=== PATIENT | male | born 1975 | race African-American/Black ===

== ENCOUNTER 2025-11-07 13:14 | Outpatient (AMB) | payer BC, SELFPAY ==
--- OUTSIDE RECORDS SUMMARY | 2025-11-07 13:16 | XMS_ITS | Clinical Summary ---
Author Organization [facility] Prior to 04/12/[address] [place] [address] Care Team Providers Care Pta Name Role Phone Unknown, Primary Care Provider Unavailabl e Allergies Active Allergy Reactions Criticality Noted Date Comments Oxycodone-Acetaminophen Nausea Only 06/06/2014 Medications Medication Sig Dispensed Refills Start Date End Date Status HYDROcodone-acetamino phen (NORCO) 5-325 MG per tablet Take 1 tablet by mouth every 6 (six) hours as needed for pain. 30 tablet 0 05/13/2015 Active Social History Tobacco Use Types Packs/Day Years Used Date Smoking Tobacco: Never Alcohol Use Standard Drinks/Week Comments No 0 (1 standard drink = 0.6 oz pur e alcohol) Sex and Gender Information Value Date Recorded Sex Assigned at Not on file Gender Identity Not on file Sexual Orientation Not on file Job Start Date Occupation Industry Not on file Not on file Not on file Last Filed Vital Signs Vital Sign Reading Time Taken Comments Blood Pressure 161/100 07/28/2017 3:56 AM EDT Pulse 60 07/28/2017 3:56 AM EDT Temperature 36.7 C (98.1 F) 07/28/2017 3:56 AM EDT Respiratory Rate 16 07/28/2017 3:56 AM EDT Oxygen Saturation 100% 07/28/2017 3:56 AM EDT Inhaled Oxygen Concentration - - Weight 78 kg (172 lb) 07/28/2017 3:56 AM EDT Height 167.6 cm (5' 6 ) 07/28/2017 3:56 AM EDT Body Mass Index 27.76 07/28/2017 3:56 AM EDT Plan of Treatment Health Maintenance Due Date Last Done Comments Hepatitis C Screening 1974 Depression Screening 1986 Preventative Health Evaluation 1992 Hepatitis B Vaccines (3 of 3 - 19+ 3-dose series) 09/15/2018 04/19/2018, 04/19/2018, 03/15/2018, Additional history exists Colon Cancer Screening (Colonoscopy) 2019 Shingrix-Zoster Vaccine (1 of 2) 2024 COVID-19 Vaccine (2 - season) 2025 11/10/2021 Influenza Vaccine (#1) 2025 08/29/2023, 2020 DTap / Tdap / Td (2 - Td or Tdap) 01/16/2028 01/15/2018 Pneumococcal Vaccine Aged Out No long er eligible based on patient's age to complete this topic RSV Ped < 20 months Aged Out No longe r eligible based on patient's age to complete this topic Medical Devices Implanted Type Area Cheese Packer Device Identifier Shelf Expiration Date Model / Serial / Lot Rayhack Lpl Bone Plate Implanted:Qty: 1 on 07/09/2014 by Cecil [place]ello [place] [facility] Right: Wrist [id number] / / Rayhack Locking Screw 2.7mm, 16mm Implanted:Qty: 1 on 07/09/2014 by Cecil Tello MD [place] [facility] Right: Wrist [id number] / / Rayhack Cortical Screw 3.5mm, 12mm Implanted:Qty: 1 on 07/09/2014 [place] [facility] [employer] [id number] / / Rayhack Cortical Screw 3.5mm, 14mm Implanted:Qty: 1 on 07/09/2014 by Cecil Tello MD [place] [facility] Right: Wrist [id number] / / Rayhack Cortical Screw ; 3.5mm, 16mm Implanted:Qty: 2 on 07/09/2014 by Cecil Tello MD [place] [facility] Right: Wrist [id number] / / Rayhack Locking Screw 2.7mm, 12mm Implanted:Qty: 1 on 07/09/2014 by Cecil Tello MD [place] [facility] Right: Wrist [id number] / / Explanted Type Area Cheese Packer Device Identifier Shelf Expiration Date Model / Serial / Lot Rayhack Cortical Screw 3.5mm, 18mm Explanted:Qty: 1 on 07/09/2014 by Cecil Tello [place] [facility] Right: Wrist [id number] / / Rayhack Cortical Screw 3.5mm, 20mm Explanted:Qty: 1 on 07/09/2014 by Cecil Tello MD at [facility] [id number] / / Rayhack Cortical Screw 3.5mm, 14mm Explanted:Qty: 1 on 07/09/2014 by Cecil Tello MD [place] [facility] Right: Wrist [id number] / / Rayhack Cortical Screw 2.7mm, 16mm Explanted:Qty: 1 on 07/09/2014 at [facility] Right: Wrist [id number] / / Screw Explanted:Qty: 7 on 05/13/2015 by Cecil Tello MD [place] [facility] Right: Wrist Plate Explanted:Qty: 1 on 05/13/2015 by Cecil Tello MD [place] [facility] Right: Wrist Care Teams Pta Relationship Specialty Start Date End Date Unknown, PCP - General 12/15/23
--- OUTSIDE RECORDS SUMMARY | 2025-11-07 13:16 | XMS_ITS | Clinical Summary ---
Author Organization [facility] Address [address] [place] [address] Care Team Providers Care Painter Railroad Car Name Role Phone Bryan Gonzalez MD Primary Care Provider [phone] Chad Gonzalez MD Unavailable [phone] Allergies Active Allergy Reactions Criticality Noted Date Comments Oxycodone-Acetaminophen Nausea Only 06/06/2014 vomiting Medications cyanocobalamin (VITAMIN B-12) 1000 MCG/ML injection Inject 1 mL (1,000 mcg total) into the shoulder, thigh, or buttocks every 21 days. 08/29/20 23 Active aspirin enteric coated (ECOTRIN LOW STRENGTH) 81 MG EC tabletIndications: Hyperlipidemia, unspecified hyperlipidemia type Take 1 tablet (81 mg total) by mouth daily. 90 tablet 3 12/25/19 24 Active hydrocortisone (ANUSOL-HC) 25 MG suppository UNWRAP AND INSERT 1 SUPPOSITORY RECTALLY ONCE A DAY NEEDED 01/24/20 25 Active rosuvastatin (CRESTOR) 20 MG tabletIndications: Hyperlipidemia, unspecified hyperlipidemia type TAKE 1 TABLET BY MOUTH EVERY DAY 90 tablet 3 02/11/20 25 Active Additional Information Patient taking differently:20 mg OralEvery morning, Reason: Other, Reported on 02/18/2025 Docusate Sodium (COLACE PO) Take by mouth every morning. Active Active Problems No known active problems Family History Medical History Relation Name Comments Colon cancer Brother Colon cancer Sister Relation Name Status Comments Brother Sister Social History Tobacco Use Types Packs/Day Years Used Date Smoking Tobacco: Never Smokeless Tobacco: Never Tobacco Cessation:Counseling Given: Not Answered Alcohol Use Standard Drinks/Week Comments Never 0 (1 standard drink = 0.6 oz pur e alcohol) AUDIT-C Answer Date Recorded Q1: How often do you have a drink containing alcohol? Never 02/18/2025 Q2: How many drinks containi ng alcohol do you have on a typical day when you are drinking? Patient does not drink Q3: How often do you have si x or more drinks on one occasion? Never 02/18/2025 Sex and Gender Information Value Date Recorded Sex Assigned at Male 12/25/2023 8:59 AM EST Legal Sex Male 11:54 AM EDT Gender Identity Male 12/25/2023 8:59 AM EST Sexual Orientation Heterosexual (straight) 12/25 8:59 AM EST Last Filed Vital Signs Vital Sign Reading Time Taken Comments Blood Pressure 142/90 03/03/2025 11:13 AM EDT Pulse 65 03/03/2025 11:13 AM EDT Temperature 36.1 C (97 F) 03/03/2025 10:33 AM EDT Respiratory Rate 20 03/03/2025 11:13 AM EDT Oxygen Saturation 96% 03/03/2025 11:13 AM EDT Inhaled Oxygen Concentration - - Weight 79.8 kg (176 lb) 02/18/2025 4:24 PM EDT Height 167.6 cm (5' 6 ) 02/18/2025 4:24 PM EDT Body Mass Index 28.41 02/18/2025 4:24 PM EDT Plan of Treatment Health Maintenance Due Date Last Done Comments Hepatitis C Virus Screening 1974 HIV Screening 1987 DTaP/Tdap/Td Vaccines (1 - Tdap) 1993 Hepatitis B Vaccines (1 of 3 - 19+ 3-dose series) 1993 Pneumococcal Vaccines 50+ (1 of 1 - PCV) 2024 Zoster (Shingles) Vaccine (1 of 2) 2024 Influenza Vaccine 06/13/2025 08/29/2023, 10/11/2021 COVID-19 Vaccine (4 - 2024- season) 2025 11/10/2021, 04/15/2021, 03/12/2021 Colonoscopy 03/03/2030 03/03/2025, 03/09/2021 RSV Vaccine 50 years and old er and Patients (1 - 1-dose 75+ series) 2049 Insurance [place] [place] - PPO Care Teams Painter Railroad Car Relationship Specialty Start Date End Date Bryan Gonzalez MD [address] [place] [address] PCP - General Internal Medicine 12/25/23 Chad Gonzalez MD 7 [facility] [address] [place] [address] Primary Tanker Truck Driver Cardiovascular Disease 12/28/23
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
--- OUTSIDE RECORDS SUMMARY | 2025-11-07 13:16 | XMS_ITS | Encounter Summary ---
Author Organization [facility] Prior to 09/13/2024 Address [address] [place] [address] Care Team Providers Care Systems Software Developer Name Role Phone Saurabh Romano MD Primary Care Provider Unavailable Makayla Loyd MD Primary Care Provider [phone] Reason for Visit * Reason Onset Date Comments Base Remover Feedback 09/01/2021 Physiatry Encounter Details Date Type Department Care Team Description 09/01/2021 Telephone Adult Medicine - [address] [address] Nasrin Shepard PA-C Base Remover Feedback (Physiatry) Social History Tobacco Use Types Packs/Day Years Used Date Smoking Tobacco: Never Smokeless Tobacco: Never Alcohol Use Standard Drinks/Week Comments Yes 0 (1 standard drink = 0.6 oz pur e alcohol) extremely rarely Sex Assigned at Date Recorded Male 08/18/2021 1:37 PM E DT Job Start Date Occupation Industry Not on file Not on file Not on file COVID-19 Exposure Response Date Recorded In the last month, have you been in contact with someone who was confirmed or suspected to have Coronavirus / COVID-19? No / Unsure 08/27/2021 1:14 PM EDT documented as of this encounter Miscellaneous Notes * Telephone Encounter - Otoniel Zepeda - 09/01/2021 2:53 PM EDT Patient is calling asking about his referral to Physiatry, please see message below. * Telephone Encounter - Otoniel Zepeda - 09/01/2021 9:26 AM EDT Mindy Alexandra, Can you please complete patients notes from 08/25. Estrellanilda Kira Referrals documented in this encounter Plan of Treatment Not on file documented as of this encounter Visit Diagnoses Not on filedocumented in this encounter Care Teams Systems Software Developer Relationship Specialty Start Date End Date Saurabh Romano MD PCP - General Internal Medicine 12/22/1701/12 Makayla Loyd MD [facility] [place] [address] PCP - General Internal Medicine 02/02/22 documented as of this encounter
--- OUTSIDE RECORDS SUMMARY | 2025-11-07 13:16 | XMS_ITS | Encounter Summary ---
Author Organization [facility] Prior to 09/13/2024 Address [address] [place] [address] Care Team Providers Care International Account Representative Name Role Phone Saurabh Romano MD Primary Care Provider Unavailable Makayla Loyd MD Primary Care Provider + [phone] Encounter Details Date Type Department Care Team Description 09/01/2021 Pt. Non Urgent Medic al Question Adult Medicine - [address] [address] Nasrin Shepard PA-C Social History Tobacco Use Types Packs/Day Years [...] encounter Miscellaneous Notes * Telephone Encounter - Deana Agustin M.A. - 09/01/2021 10:16 AM EDTFrom: Jostin Angela To: Yadi Shepard Sent: 09/01/2021 10:14 AM EDT Subject: Referral Question Good Morning, I was following up on the Referrals. I have not heard from either Referral and was wondering if I was suppose reach out to someone to set up appointments. Thank You documented in this encounter Plan of Treatment Not on file documented as of this encounter Visit Diagnoses Not on filedocumented in this encounter Care Teams International Account Representative Relationship Specialty Start Date End Date Saurabh Romano MD PCP - General Internal Medicine 12/22/1701/12 Makayla Loyd MD [address] [place] [address] PCP - General Internal Medicine 02/02/22 documented as of this encounter
--- OUTSIDE RECORDS SUMMARY | 2025-11-07 13:16 | XMS_ITS | Encounter Summary ---
Author Organization [facility] Prior to 09/13/2024 Address [address] [place] [address] Care Team Providers Care Combiner Operator Name Role Phone Saurabh Romano MD Primary Care Provider Unavailable Makayla Loyd MD Primary Care Provider + [phone] Encounter Details Date Type Department Care Team Description 06/15/2021 Orders Only Adult Medicine - [address] [address] Nasrin Shepard PA-C B12 deficiency Social History Tobacco Use Types Packs/Day Years [...] have Coronavirus / COVID-19? No / Unsure 06/15/2021 1:17 PM EDT documented as of this encounter Plan of Treatment Not on file documented as of this encounter Procedures Procedure Name Priority Date/Time Associated Diagnosis Comments VITAMIN B12 INJECTION Routine 06/15/2021 1:20 PM EDT B12 deficiency documented in this encounter Visit Diagnoses Diagnosis B12 deficiency Other B-complex deficiencies documented in this encounter Care Teams Combiner Operator Relationship Specialty Start Date End Date Saurabh Romano MD PCP - General Internal Medicine 12/22/1701/12 Makayla Loyd MD [address] [place] [address] PCP - General Internal Medicine 02/02/22 documented as of this encounter
--- OUTSIDE RECORDS SUMMARY | 2025-11-07 13:16 | XMS_ITS | Encounter Summary ---
Author Organization [facility] Prior to 09/13/2024 Address [address] [place] [address] Care Team Providers Care Biodiesel Engine Specialist Name Role Phone Saurabh Romano MD Primary Care Provider Unavailable Makayla Loyd MD Primary Care Provider [phone] Reason for Visit * Reason Onset Date Comments Testing 04/03/2018 Patient is sched uled for his PFT on April 30, 2018 @ 1:00 p.m. at [facility] Encounter Details Date Type Department Care Team Description 04/03/2018 Telephone Pulmonology - [place] [address] [facility] [address] [place] [address] Antoine Andrew MD [address] [facility] [address] [place] [address] Testing (Patient is scheduled for his PFT on April 30, 2018 @ 1:00 p.m. at [facility]) Social History Tobacco Use Types Packs/Day Years Used Date Smoking Tobacco: Never Smokeless Tobacco: Never Alcohol Use Standard Drinks/Week Comments Yes 0 (1 standard drink = 0.6 oz pur e alcohol) extremely rarely Sex Assigned at Date Recorded Male 08/18/2021 1:37 PM E DT Job Start Date Occupation Industry Not on file Not on file Not on file documented as of this encounter Plan of Treatment Not on file documented as of this encounter Visit Diagnoses Not on filedocumented in this encounter Care Teams Biodiesel Engine Specialist Relationship Specialty Start Date End Date Saurabh Romano MD PCP - General Internal Medicine 12/22/1701/12 Makayla Loyd MD [address] [place] [address] [place] [address] PCP - General Internal Medicine 02/02/22 documented as of this encounter
--- OUTSIDE RECORDS SUMMARY | 2025-11-07 13:16 | XMS_ITS | Encounter Summary ---
Author Organization [facility] Prior to 09/13/2024 Address [address] [place] [address] Care Team Providers Care Mathematics Department Chair Name Role Phone Makayla Loyd MD Primary Care Provider + [phone] Encounter Details Date Type Department Care Team Description 03/11/2022 Pt. Referral Request [facility] Neftali [address] [place] [address] Md Neftali Social History Tobacco Use Types Packs/Day Years [...] Exposure Response Date Recorded In the last 10 days, have yo u been in contact with someone who was confirmed or suspected to have Coronavirus/COVID-19? No / Unsure 02/17/2022 2:55 PM EDT documented as of this encounter Plan of Treatment Not on file documented as of this encounter Visit Diagnoses Not on filedocumented in this encounter Care Teams Mathematics Department Chair Relationship Specialty Start Date End Date Makayla Loyd MD [address] [place] [address] PCP - General Internal Medicine 02/02/22 documented as of this encounter
--- OUTSIDE RECORDS SUMMARY | 2025-11-07 13:16 | XMS_ITS | Encounter Summary ---
Author Organization [facility] Address [address] [place] [address] Care Team Providers Care Construction Safety Consultant Name Role Phone Bryan Gonzalez MD Primary Care Provider [phone] Chad Gonzalez MD Unavailable [phone] Encounter Details Date Type Department Care Team (Late st Contact Info) Description 10/25/2024 Scanned Document [facility] [place] [address] [phone] Lily Gonzalez MD [address] [address] Social History Tobacco Use Types Packs/Day Years Used Date Smoking Tobacco: Never Smokeless Tobacco: Never Alcohol Use Standard Drinks/Week Comments Never 0 (1 standard drink = 0.6 oz pur e alcohol) Sex and Gender Information Value Date Recorded Sex Assigned at Male 12/25/2023 8:59 AM EST Legal Sex Male 11:54 AM EDT Gender Identity Male 12/25/2023 8:59 AM EST Sexual Orientation Heterosexual (straight) 12/25 8:59 AM EST documented as of this encounter Plan of Treatment Not on file documented as of this encounter Visit Diagnoses Not on filedocumented in this encounter Care Teams Construction Safety Consultant Relationship Specialty Start Date End Date Bryan Gonzalez MD [address] [place] [address] PCP - General Internal Medicine 12/25/23 Chad Gonzalez MD [address] [place] [address] Primary Fish Cleaner Machine Tender Cardiovascular Disease 12/28/23 documented as of this encounter
--- OUTSIDE RECORDS SUMMARY | 2025-11-07 13:16 | XMS_ITS | Encounter Summary ---
Author Organization [facility] Address [address] [place] [address] Care Team Providers Care Head Start Teacher Name Role Phone Bryan Gonzalez MD Primary Care Provider [phone] Chad Gonzalez MD Unavailable [phone] Encounter Details Date Type Department Care Team (Late st Contact Info) Description 12/28/2023 Scanned Document [facility] [place] [address] [address] Cardiology, Scan Social History Tobacco Use Types Packs/Day Years [...] on filedocumented in this encounter Care Teams Head Start Teacher Relationship Specialty Start Date End Date Bryan Gonzalez MD [address] [place] [id number] PCP - General Internal Medicine 12/25/23 Chad Gonzalez MD 7 [facility] [address] [place] [address] Primary Shipyard Laborer Cardiovascular Disease 12/28/23 documented as of this encounter
--- OUTSIDE RECORDS SUMMARY | 2025-11-07 13:16 | XMS_ITS ---
Author Name [facility] Organization Unknown History of Medication Use Medication Directions Dispensed Refills Start Date End Date Stat us cephalexin (KEFLEX) 500 MG capsule 1 capsule (500 mg total) by Mouth/Oral Cavity route 4 (four) times a day. 01/23/2025 active hydrocortisone (ANUSOL-HC) 25 MG suppository UNWRAP AND INSERT 1 SUPPOSITORY RECTALLY ONCE A DAY NEEDED 01/23/2025 active Hydrocortisone 2 % Cream APPLY 1 APPLICATORFUL EVER 12 HOURS 01/23/2025 active iohexol (OMNIPAQUE) 350 mg/mL injection 80 mL 80 mL, Intravenous, Once in imaging, contrast, Starting on Ness 01/18/24 at 0912, For 1 dose, Radiology Appointment 01/18/2024 4 completed rosuvastatin (CRESTOR) 20 MG tablet TAKE 1 TABLET BY MOUTH EVERY DAY 12/25/2023 5 active rosuvastatin (CRESTOR) 10 MG tablet Take 1 tablet (10 mg total) by mouth daily. 12/25/2023 4 aborted aspirin enteric coated (ECOTRIN LOW STRENGTH) 81 MG EC tablet Take 1 tablet (81 mg total) by mouth daily. 12/25/2023 active metoPROLOL TARTRATE (LOPRESSOR) 50 MG tablet Take 1 tablet (50 mg total) by mouth as needed (Take 1 pill the night before the test and 1 the day of the test). 12/25/2023 active cyanocobalamin (VITAMIN B-12) 1000 MCG/ML injection Inject 1 mL (1,000 mcg total) into the shoulder, thigh, or buttocks every 21 days. 08/29/2023 active Allergies Allergen Reaction Severity Comment Documented Date Source Statu s OXYCODONE-ACETAMINOPHEN NAUSEA ONLY vomiting 06/06/2014 [facility] active Problems Problem Status Onset Date Problem Type Date of Resoluti on Source Hx of colonic polyps active EncounterDiagnosisA ct [facility] Family history of rectal cancer [facility] Screening for colon cancer active EncounterDiagnosisAct [facility] Family history of colon polyps, unspecified active [facility]DiagnosisAct [facility] Encounters Encounter Type Encounter Reason Primary Diagnosis Location Date Ambulatory Encounter for screening for malignant neoplasm of colon Encounter for screening for malignant neoplasm of colon [facility] 03/03/2025 Ambulatory Perianal venous thrombosis Perianal venous thrombosis [facility] 02/13/2025 Ambulatory Perianal venous thrombosis Perianal venous thrombosis [facility] 02/07/2025 Ambulatory [facility] 01/31/2025 Ambulatory Chest pain, unspecified Chest pain, unspecified [facility] 02/21/2024 Ambulatory Hyperlipidemia, unspecified Hyperlipidemia, unspecified [facility] 01/18/2024 Ambulatory Hyperlipidemia, unspecified Hyperlipidemia, unspecified [facility] 12/25/2023 Care Team Organization Name Specialty Phone Email Start Date End Da te [facility] LESLEE ALEXANDER, Primary Care 12/25/2023 04/03/20 [facility] LESLEE ALEXANDER, Primary Care 12/25/2023 [facility] NO PCP Primary Care 12/13/2023 [facility] Silvino Hernandez Primary Care 01/18/2023 07/01/2024
--- OUTSIDE RECORDS SUMMARY | 2025-11-07 13:16 | XMS_ITS | Encounter Summary ---
Author Organization [facility] Prior to 09/13/2024 Address [address] [place] [address] Care Team Providers Care Assessment Rn Name Role Phone Saurabh Romano MD Primary Care Provider Unavailable Makayla Loyd MD Primary Care Provider [phone] Encounter Details Date Type Department Care Team Description 04/27/2018 Hospital Medical Records [address] [place] [address] Antoine Andrew MD [address] [place] [address] [phone] Social History Tobacco Use Types Packs/Day Years [...] on filedocumented in this encounter Care Teams Assessment Rn Relationship Specialty Start Date End Date Saurabh Romano MD PCP - General Internal Medicine 12/22/1701/12 Makayla Loyd MD [address] [place] [address] PCP - General Internal Medicine 02/02/22 documented as of this encounter
--- OUTSIDE RECORDS SUMMARY | 2025-11-07 13:16 | XMS_ITS | Encounter Summary ---
Author Organization [facility] Prior to 09/13/2024 Address [address] [place] [address] Care Team Providers Care Licensing Services Clerk Name Role Phone Saurabh Romano MD Primary Care Provider Unavailable Makayla Loyd MD Primary Care Provider + [phone] Encounter Details Date Type Department Care Team Description 09/20/2021 Pt. Non Urgent Medic al Question Adult Medicine - [address] [address] Nasrin Shepard PA-C Social History Tobacco Use [...] have Coronavirus / COVID-19? No / Unsure 09/23/2021 2:59 PM EST documented as of this encounter Miscellaneous Notes * Telephone Encounter - Chantelle Laws - 09/21/2021 8:03 AM ESTFrom: Jostin Angela To: Yadi Shepard Sent: 09/20/2021 10:28 PM EST Subject: Back Pain Back Pain has got alot worse and soonest appointment they have me for is Aug 31. Was checking to see if there was another office that would be able to see me sooner? Thank You documented in this encounter Plan of Treatment Not on file documented as of this encounter Visit Diagnoses Not on filedocumented in this encounter Care Teams Licensing Services Clerk Relationship Specialty Start Date End Date Saurabh Romano MD PCP - General Internal Medicine 12/22/1701/12 Makayla Loyd MD [facility] [place] [address] PCP - General Internal Medicine 02/02/22 documented as of this encounter
--- OUTSIDE RECORDS SUMMARY | 2025-11-07 13:16 | XMS_ITS | Encounter Summary ---
Author Organization [employer] [facility] Prior to 09/13/2024 Address [address] [place] [address] Care Team Providers Care Acquisitions Librarian Name Role Phone Makayla Loyd MD Primary Care Provider + [phone] Encounter Details Date Type Department Care Team Description 02/17/2022 Orders Only Adult Medicine - [place] [address] [place] [address] Nasrin Shepard PA-C B12 deficiency Social History Tobacco Use Types Packs/Day Years Used Date Smoking Tobacco: Never Smokeless Tobacco: Never Alcohol Use Standard Drinks/Week Comments Yes 0 (1 standard drink = 0.6 oz pur e alcohol) extremely rarely Sex Assigned at Date Recorded Male 08/18/2021 1:37 PM EDT Job Start Date Occupation Industry Not on [...] Associated Diagnosis Comments VITAMIN B12 INJECTION Routine 02/17/2022 4:06 PM EDT B12 deficiency documented in this encounter Visit Diagnoses Diagnosis B12 deficiency Other B-complex deficiencies documented in this encounter Care Teams Acquisitions Librarian Relationship Specialty Start Date End Date Makayla Loyd MD [address] [place] [address] PCP - General Internal Medicine 02/02/22 documented as of this encounter
--- OUTSIDE RECORDS SUMMARY | 2025-11-07 13:16 | XMS_ITS | Encounter Summary ---
Author Organization [facility] Prior to 09/13/2024 Address [address] [place] [address] Care Team Providers Care Hair Clipper Power Name Role Phone Saurabh Romano MD Primary Care Provider Unavailable Makayla Loyd MD Primary Care Provider [phone] Reason for Referral * Radiology Services (Routine) - Closed Specialty Diagnoses / Procedures Referred By Grabiel bran Referred To Contact Radiology Diagnoses Neuropathy of both feet Bilateral low back pain without sciatica, unspecified chronicity Procedures MRI OF LUMBAR SPINE NO CONTRAST Nasrin Shepard PA-C [address] [place] [address] Mri/[address] [address] Referral ID Status Reason Start Date Expiration Date Visits Re quested Visits Authorized [id number] Closed 08/09/2021 02/06/2022 1 1 Reason for Visit * Reason Onset Date Comments Follow-up 08/03/2021 Encounter Details Date Type Department Care Team Description 08/03/2021 Telephone Adult Medicine - [place] [address] [place] [address] Nasrin Shepard PA-C Follow-up Social History Tobacco Use Types Packs/Day Years [...] have Coronavirus / COVID-19? No / Unsure 07/30/2021 1:15 PM EDT documented as of this encounter Miscellaneous Notes * Telephone Encounter - Carina Landeros - 08/10/2021 3:13 PM EDT LMOM for pt to call office back and book follow up appt. Please advise. * Telephone Encounter - Nasrin Shepard PA-C - 08/09/2021 3:15 PM EDT Please schedule pt in person visit in next few weeks to follow up on low back pain and foot numbness. * Telephone Encounter - Nasrin Shepard PA-C - 08/09/2021 3:12 PM EDT Pt reports memory is doing a lot better than it was since starting B12. However he notes in last 1-1.5 months his low back is hurting and even more often feet going numb if he sits awhile. In settingof ongoing and worsening numbness + back pain, will order MRI lumbar spine. Recommend f/u in personin next few weeks and B12 prior to that. * Telephone Encounter - Carina Landeros - 08/09/2021 1:05 PM EDT Pt states that anytiem between 11am- 1pm or 2pm-3pm is generally a good time. Please advise. * Telephone Encounter - Nasrin Shepard PA-C - 08/06/2021 5:55 PM EDT Have called pt several times including 08/04, 08/05 and today. Please find out when is best to reach him and what number * Telephone Encounter - Ramonita Johnson - 08/04/2021 2:13 PM EDT Pt calling back. * Telephone Encounter - Nasrin Shepard PA-C - 08/03/2021 2:21 PM EDT Called pt to check in on how he is doing. No answer, message left. documented in this encounter Plan of Treatment Not on file documented as of this encounter Results * VITAMIN B-12, ASSAY (08/27/2021 1:08 PM EDT) VITAMIN B12 308 250 - 900 pg/mL 08/27/2021 5:10 PM EDT [facility] 08/27/2021 1:08 PM EDT 08/27/2021 1:10 PM EDT Narrative [facility] - 08/27/2021 5:10 PM EDT Release to patient->Immediate Nasrin Shepard PA-C LAB [facility] Sensorist * MRI OF LUMBAR SPINE NO CONTRAST (08/13/2021 1:56 PM EDT) 08/13/2021 4:00 PM EDT Impressions [facility] - 08/13/2021 4:12 PM EDT 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 and L4-L5 with severe left neuroforaminal stenosis at L3-L4 and L4-L5 Narrative [facility] - 08/13/2021 4:12 PM EDT MRI LUMBAR SPINE Clinical Statement: Neuropathy, lower back pain Comparison: None Technique: Multiplanar, multisequence MRI images of the lumbar spine were obtained without intravenous contrast. Findings: There is normal lumbar lordosis. There is preservation of vertebral body height. Mildly heterogeneous vertebral body marrow at endplates attributed to degenerative changes. Disc desiccation at multiple levels with disc height loss at L4-L5. Cord signal is normal. The conus medullaris is normal in signal characteristics and morphology and terminates at the L1 level. T12-L1: No neuroforaminal stenosis or spinal canal stenosis seen on the sagittal view L1-L2: No neuroforaminal stenosis or spinal canal stenosis seen on the sagittal view L2-L3: Broad-based disc bulge, facet arthropathy, ligamentum flavum hypertrophy with bilateral moderate neuroforaminal stenosis and moderate spinal canal stenosis. Ligamentum flavum hypertrophy abuts the nerve roots L3-L4: Broad-based disc bulge, ligamentum flavum hypertrophy, facet arthropathy and hypertrophy resulting in severe left and moderate right neuroforaminal stenosis. Mild spinal canal stenosis L4-L5: Broad-based disc bulge and central disc herniation, facet arthropathy, ligamentum flavum hypertrophy resulting in moderate right and severe left neuroforaminal stenosis, mild spinal canal stenosis L5-S1: Broad-based disc bulge and central disc herniation, facet arthropathy without neuroforaminal or spinal canal stenosisI Procedure Note Renny Burgos MD - 08/13/2021 MRI LUMBAR SPINE Clinical Statement: Neuropathy, lower back pain Comparison: None Technique: Multiplanar, multisequence MRI images of the lumbar spine wereobtained without intravenous contrast. Findings: There is normal lumbar lordosis. There is preservation ofvertebral body height. Mildly heterogeneous vertebral body marrow at endplates attributed todegenerative changes. Disc desiccation at multiple levels with disc height loss at L4-L5. Cordsignal is normal. The conus medullaris is normal in signal characteristics and morphology andterminates at the L1 level. T12-L1: No neuroforaminal stenosis or spinal canal stenosis seen on thesagittal view L1-L2: No neuroforaminal stenosis or spinal canal stenosis seen on thesagittal view L2-L3: Broad-based disc bulge, facet arthropathy, ligamentum flavumhypertrophy with bilateral moderate neuroforaminal stenosis and moderate spinal canal stenosis.Ligamentum flavum hypertrophy abuts the nerve roots L3-L4: Broad-based disc bulge, ligamentum flavum hypertrophy, facetarthropathy and hypertrophy resulting in severe left and moderate right neuroforaminal stenosis.Mild spinal canal stenosis L4-L5: Broad-based disc bulge and central disc herniation, facetarthropathy, ligamentum flavum hypertrophy resulting in moderate right and severe left neuroforaminalstenosis, mild spinal canal stenosis L5-S1: Broad-based disc bulge and central disc herniation, facetarthropathy without neuroforaminal or spinal canal stenosisI IMPRESSION 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 and L4-L5 with severe left neuroforaminal stenosis at L3-L4 and L4-L5 Nasrin Shepard PA-C [facility] documented in this encounter Visit Diagnoses Diagnosis B12 deficiency- Primary Other B-complex deficiencies Neuropathy of both feet Mononeuritis of lower limb, unspecified Bilateral low back pain without sciatica, unspecified chronicity Neuropathy of both feet Mononeuritis of lower limb, unspecified Bilateral low back pain without sciatica, unspecified chronicity Excessive use of nonsteroidal anti-inflammatory drug (NSAID) B12 deficiency Other B-complex deficiencies documented in this encounter Care Teams Hair Clipper Power Relationship Specialty Start Date End Date Saurabh Romano MD PCP - General Internal Medicine 12/22/1701/12 Makayla Loyd MD [address] [place] [id number] PCP - General Internal Medicine 02/02/22 documented as of this encounter
--- OUTSIDE RECORDS SUMMARY | 2025-11-07 13:16 | XMS_ITS | Encounter Summary ---
Author Organization [employer] [facility] Prior to 09/13/2024 Address [address] [place] [address] Care Team Providers Care Electronic Controls Repairer Supervisor Name Role Phone Saurabh Romano MD Primary Care Provider Unavailable Makayla Loyd MD Primary Care Provider [phone] Encounter Details Date Type Department Care Team Description 10/01/2021 Pr Internship Report Medical Records [address] [place] [address] [facility] [address] [place] [address] Social History Tobacco Use Types Packs/Day Years [...] have Coronavirus / COVID-19? No / Unsure 10/01/2021 1:05 PM EST documented as of this encounter Plan of Treatment Not on file documented as of this encounter Visit Diagnoses Not on filedocumented in this encounter Care Teams Electronic Controls Repairer Supervisor Relationship Specialty Start Date End Date Saurabh Romano MD PCP - General Internal Medicine 12/22/1701/12 Makayla Loyd MD [address] [place] [address] PCP - General Internal Medicine 02/02/22 documented as of this encounter
--- NOTE | 2025-11-07 13:20 | MHC.OFFVIS ---
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 Patient states that she he has been experiencing chest discomfort for over a year ago which is random in nature. Patient was at [facility] who had worked him up with an echo and a coronary CTA over a year ago. Patient lives in [place] and [facility] but is trying to establish cardiology care in [place]. Patient states that his chest pain is random in nature and feels like needles sensation under his left breast. Patient is sometimes feels like this gets worse with deep inspiration and states that this is getting worse as now patient gets short of breath specially after going up a flight of stairs. Patient states that previously given his abnormal lipid profile, he was started on aspirin and rosuvastatin however was discontinued due to inability of obtaining refills as he was not seeing [facility] anymore. Patient states that he has a very significant family history of coronary artery disease where to his brothers at the age of 50s and his mother has had 3 strokes. Patient denies any use of alcohol, illicit drugs, nicotine, or tobacco. [facility] Family History Brother Heart attack Mother Stroke Sister Heart attack Father Stroke Social History Alcohol intake: never Patient Tobacco Use Status: Never used Tobacco Review of Systems Const Denies daytime sleepiness, Denies difficulty sleeping, Denies snoring, Denies stops breathing during sleep and Denies weakness Card Reports chest pain, Denies rapid heart rate, Denies irregular heart rhythm, Denies claudication, Denies leg edema, Denies lightheadedness, Denies palpitations, Reports dyspnea, Denies dyspnea on exertion, Denies orthopnea, Denies paroxysmal nocturnal dyspnea and Denies slow heart rate Resp Denies cough, Reports dyspnea, Denies dyspnea on exertion and Denies snoring GI Reports no additional complaints, Denies hematochezia, Denies change in stool character and Denies dyspepsia Musc Denies abnormal gait, Denies muscle weakness and Denies numbness Neuro Denies abnormal gait, Denies numbness and Denies weakness Endo Denies palpitations Physical Exam Vital Signs: Last Vital Signs Pulse 60 11/07/25 13:22 BP 120/72 11/07/25 13:22 BMI result Body Mass Index 27.2 Const General: cooperative, healthy appearing, comfortable and no acute distress Orientation/consciousness: patient oriented x3 HEENT Head: Yes normal to inspection Neck Neck: Yes normal visual inspection, Yes trachea midline and Yes supple Chest Chest palpation & inspection: normal inspection of the chest Resp Effort & Inspection: normal respiratory effort Auscultation: clear to auscultation bilaterally, no crackles, no rales, no rhonchi and no wheezes Cardio Jugular venous distension: no JVD Palpation: normal PMI Rate: regular rate Rhythm: regular rhythm Heart sounds: S1 normal heart sound present, S2 normal heart sound present, no click, no gallops, no murmurs and no rubs Peripheral pulses: Peripheral pulses 2+ throughout GI Inspection: Yes normal to inspection Palpation (GI): Soft to palpation Auscultation: normal bowel sounds Skin General skin exam: no rashes or lesions noted Neuro General: patient oriented x3 Extrem General: Yes normal to inspection, No no pedal edema and No calf tenderness Psych Appearance: grossly normal Mental Status: mental status grossly normal Speech and movement: Normal speech and movement present Assessment & Plan Assessment & Plan (1) Chest pain: Code(s): R07.9 - Chest pain, unspecified Category: Medical Plan: Reviewed the reports from [facility] that patient brought in. Echo from 01/18/2024 showed normal LV systolic function with an ejection fraction at 57% and a mildly dilated ascending aorta at 4.0 cm. Patient also underwent a coronary CTA at that time showing no significant coronary artery disease with a calcium score of 7.2. Given his significant risk factors, patient was started on rosuvastatin aspirin by [facility] however this was discontinued due to inability to obtain refills. Patient also brings his lab work with advanced lipid profile from back then showing elevated lipoprotein a at 167. We will start patient back on aspirin therapy and low-dose rosuvastatin therapy. No recent lipid profile and therefore we will update this. Ideally, LDL goal less than 70. Given his reports of chest discomfort has typical as well as atypical features. Given his significant risk factor, we will proceed with a stress myocardial perfusion to assess for ischemia. We will also update echocardiogram to assess for cardiac dysfunction as well as progression of his dilated ascending aorta. Blood pressure today is well-controlled. Brings a list of home blood pressures where systolic is averaging in the 120s. Advised on low-salt diet. (2) Hyperlipidemia: Code(s): E78.5 - Hyperlipidemia, unspecified Category: Medical Plan: As above Advised on heart healthy diet, regular exercise, med compliance, and aggressive management of vascular risk factors. Follow up after testings. In the interim, patient will call the office with any concerns or change in symptoms. This note was generated using voice recognition software. While every effort has been made to ensure accuracy and proper attendant coin operated laundry, there may be occasional errors that could affect the content or meaning of the described symptoms. Orders: Orders Lipid Panel Today E78.5 - Hyperlipidemia, unspecified CA echo transthoracic complete Today R07.9 - Chest pain, unspecified CA stress test Today R07.9 - Chest pain, unspecified NM cardiolite stress test Today R07.9 - Chest pain, unspecified AMB EKG-In Office Today R07.9 - Chest pain, unspecified Medications: New rosuvastatin 5 mg PO DAILY 90 tabs 3RF aspirin (Adult Low Dose Aspirin) 81 mg PO DAILY 90 tabs 3RF Coding Level of Care Code New Pt Level 4 (24858) Add On Problem Visit Only Diagnoses Chest pain R07.9 Hyperlipidemia E78.5 Time Spent (min) 33 Comment Time spent in reviewing the chart, test results, assessment, counseling and documentation.
[2025-11-07 13:22] VITALS: BP 120/72; PULSE 60; BMI 27.2
== END 2025-11-07 13:58 | disposition home or self-care (01) ==
LOC: HO.HCS 13:14
PROVIDERS: PCP Internal Medicine
DX: R07.9 Chest pain, unspecified (principal); E78.5 Hyperlipidemia, unspecified
CPT/HCPCS: 93010; 99204

== ENCOUNTER → 2025-11-07 13:14 | Outpatient (BNVA) | payer BC, SELFPAY | PROVIDERS: PCP Internal Medicine | DX: R07.89 Other chest pain (principal); E78.5 Hyperlipidemia, unspecified | CPT/HCPCS: 93005 ==